=== PATIENT | male | born 1985 | race Caucasian/White ===

== ENCOUNTER 2018-06-28 16:57 | Emergency (ER) | payer MEDICAID ==
[~2018-06-28] VITALS: Ht 175.3 cm; Wt 90.7 kg
[~2018-06-28 16:57] MED LIST: ALBU90OI INH; CIPR500 PO; ERYT.5TO OS; FAMO20 PO; HYDACE5 PO; IBUP800 PO; LORA1 PO; NAPR500 PO; OXYACE5T PO; RXOXYACE PO; TRAM50 PO
[2018-06-28 18:36] LABS: Source, Urine Clean Catch
[2018-06-28] MEDS ORDERED: Vibramycin100 MG PO (18:43)
[2018-06-28] MEDS ORDERED: IBUP800 PO (18:43)
[2018-06-28 19:16] LABS: Appearance, Urine Hazy (Clear); Bilirubin, Urine Neg (Neg); Blood, Urine 3+ (Neg); Color, Urine Yellow (P-Yellow); Glucose Qualitative, Urine Neg (Neg); Ketones, Urine 1+ (Neg); Leukocyte Esterase, Urine 3+ (Neg); Nitrite, Urine Neg (Neg); Protein, Urine 2+ (Neg); Urobilinogen, Urine 1+ (Normal)
[2018-06-28 20:13] LABS: White Blood Cells, Urine TNTC /hpf (0-5)
[2018-06-28 20:15] LABS: Bacteria Rare /hpf; Squamous Epithelial Cells Rare /hpf (Few)
[2018-06-30 05:12] LABS: CHLAMYDIA TRACHOMATIS, NAA Negative (Negative); NEISSERIA GONORRHOEAE, NAA Positive (Negative)
== END 2018-06-28 19:05 | disposition home or self-care (01) ==
LOC: ER 16:57
PROVIDERS: Physician Assistant
DX: N45.1 Epididymitis (principal); F17.200 Nicotine dependence, unspecified, uncomplicated; Z91.030 Bee allergy status
CPT/HCPCS: 76870; 81001; 87086; 87491; 87591; 96372; 99284-25; J0696